=== PATIENT | male | born 1995 | race Hispanic/Latino ===

== ENCOUNTER 2023-08-18 19:35 | Inpatient (IN) | payer MEDICAID, SELFPAY ==
[2023-08-18 21:41] LABS: Absolute Basophils 0.1 K/uL (0-0.5); Absolute Eosinophils 0.2 K/uL (0-0.5); Absolute Lymphocytes (CBC) 1.3 K/uL (0.7-4.9); Absolute Monocytes 0.5 K/uL (0.1-1.3); Absolute Neutrophil 4.7 K/uL (1.8-8.0); Basophils % 0.8 % (0-1.3); Eosinophils % 3.5 % (0-4.4); Hematocrit 24.6 % (39.6-49.0); Hemoglobin 8.7 g/dL (13.6-17.9); Lymphocytes % 19.2 % (15.3-44.8); MCH 29.5 pg (27.0-35.0); MCHC 35.2 g/dL (32.0-36.0); MCV 83.6 fL (80-100); MPV 9.6 fL (7.6-11.3); Monocytes % 7.6 % (3.3-12.3); Neutrophils % 68.9 % (41.7-73.7); Nucleated Red Blood Cells % 0.1 % (0-0); Platelets 137 thou/uL (152-406); RBC Red Blood Cell Count 2.94 M/uL (4.33-5.43); Red Cell Distribution Width 12.9 % (12.1-15.2)
--- NOTE | 2023-08-18 22:06 | RAD REPORT ---
EXAM DESCRIPTION: Shira Single View08/18/2023 8:46 pm CLINICAL HISTORY: Chest pain COMPARISON: none FINDINGS: Lungs appear clear of acute infiltrate. Cardiac silhouette moderately enlarged IMPRESSION: Cardiac silhouette moderately enlarged which may represent cardiomegaly or pericardial e ffusion
[2023-08-18 22:19] LABS: Albumin/Globulin Ratio 0.8 (1.1-1.8); Anion Gap 16.8 mEq/L (5.0-15.0); Bilirubin Total 0.5 mg/dL (0.2-1.0); Globulin 3.9 g/dL (2.3-3.5); Magnesium 2.8 mg/dL (1.6-2.4); Potassium 2.8 mEq/L (3.5-5.1); Protein, Total 6.9 g/dL (6.4-8.2)
[2023-08-18 22:24] LABS: Troponin High Sensitivity 191.9 pg/mL (<58.9)
[2023-08-18] MEDS ORDERED: ONDANSETRON 4 MG/2 ML VIAL IV PRN (23:11)
--- NOTE | 2023-08-18 23:11 | P.HP ---
Certification for Inpatient Patient admitted to: Inpatient With expected LOS: >2 Midnights Practitioner: I am a practitioner with admitting privileges, knowledge of patient current condition, hospital course, and medical plan of care. Services: Services provided to patient in accordance with Admission requirements found in Title 42 Section 412.3 of the Code of Federal Regulations Patient History Date of Service: 08/19/23 Reason for admission: Renal failure, hypocalcemia, metabolic acidemia History of Present Illness: 28-year-old male patient was medical history significant for high blood pressure related issue was evaluated for episode of lethargy weakness and found to have significant lab abnormality. He was found to have elevated creatinine of 12, potassium of 2.9, bicarb of 17, calcium of 5.9 and significant elevation of BUN. Overall he was deemed to have renal failure and was admitted for inpatient care. He had reported episode of lethargy, weakness, poor appetite. He denied overt episode of diarrhea. Initial his initial lab in the at patient setting was similar to labs done in the emergency room. He was asked to be evaluated by nephrology for management recommendation. Renal ultrasound done while admitted showed increased echogenicity of both kidneys with poor corticomedullary differentiation depicting chronic medical renal disease. Allergies No Known Allergies Allergy (Unverified 08/19/23 00:48) Review of Systems General: Weakness, Malaise Eyes: Unremarkable ENT: Unremarkable Respiratory: Unremarkable Cardiovascular: Unremarkable Gastrointestinal: As per HPI Genitourinary: Unremarkable Musculoskeletal: Unremarkable Integumentary: Unremarkable Neurological: Unremarkable Lymphatics: Unremarkable Physical Examination - Physical Exam General: Alert, Oriented x3 HEENT: Atraumatic Neck: Supple Respiratory: Normal air movement Cardiovascular: Regular rate/rhythm, Normal S1 S2 Gastrointestinal: Soft and benign Musculoskeletal: No swelling Neurological: Normal speech, Normal strength at 5/5 x4 extr - Studies Laboratory Data (last 24 hrs) 08/18/23 08/18/23 21:17 21:17 WBC 6.80 Hgb 8.7 L Hct 24.6 L Plt Count 137 L Sodium 124 L Potassium 2.8 L BUN 90 H Creatinine 11.70 H Glucose 125 H Magnesium 2.8 H Total Bilirubin 0.5 AST 10 L ALT 15 L Alkaline Phosphatase 123 H Assessment and Plan - Plan Renal failure: Present kidney function abnormality is deemed secondary to hypertensive nephrosclerosis however the other possibilities. Significant uremia noted. Hypocalcemia, metabolic acidemia, hyponatremia and hypokalemia all deemed secondary to renal failure related issue. We will follow recommendation by nephrology for management of kidney function issues. Nephrology consultation has been placed for care plan. Hypocalcemia: Low calcium noted at 5.9. This is deemed secondary to poor calcium hemostasis from clinically stress kidney. Calcitriol and calcium carbonate started for management Nephrology consultation placed Metabolic acidemia: Bicarb is low at 17. This is presumed secondary to poor bicarb generation from chronically stressed kidney. Will supplement with sodium bicarbonate and have nephrology manage appropriately. Hypertension: We will monitor vital signs per unit protocol and continue outpatient antihypertensive medications. Anemia: Low hemoglobin is 9.0. Management recommendation as per bacon skin lifter. Iron studies obtained. Prophylaxis: Heparin for DVT prophylaxis CODE STATUS: Full code Disposition: We will treat his renal failure related issue and he will be evaluated for possible outpatient dialysis placement. - Advance Directives Does patient have a Living Will: No Does patient have a Durable POA for Healthcare: No
--- NOTE | 2023-08-18 23:13 | ER ---
Nurse's Notes [facility] Name: Ranjit Wooten Age: 28 yrs Sex: Male : 1995 Arrival Date: 08/18/2023 Time: 19:35 Bed 19 Private MD: Diagnosis: Acute kidney failure, unspecified Presentation: 08/17 19:52 Chief complaint: Patient states: Pt c/o dizziness, high blood pressure, difficulty tl4 concentrating, nausea and vomiting x 2-3 weeks. Pt was evaluated at a clinic. Lab results are abnormal. Pt started on HTN meds. Coronavirus screen: At this time, the client does not indicate any symptoms associated with coronavirus-19. Ebola Screen: No symptoms or risks identified at this time. Initial Sepsis Screen: Does the patient meet any 2 criteria? No. Patient's initial sepsis screen is negative. Does the patient have a suspected source of infection? No. Patient's initial sepsis screen is negative. Risk Assessment: Do you want to hurt yourself or someone else? Patient reports no desire to harm self or others. Onset of symptoms was July 29, 2023. 19:52 Method Of Arrival: Ambulatory tl4 19:52 Acuity: ESCOBAR 3 tl4 Triage Assessment: 19:57 General: Appears in no apparent distress. Behavior is calm, cooperative. Pain: Denies tl4 pain. EENT: No deficits noted. No signs and/or symptoms were reported regarding the EENT system. Neuro: No deficits noted. Cardiovascular: No deficits noted. Respiratory: No deficits noted. GI: Reports nausea, vomiting. : No deficits noted. No signs and/or symptoms were reported regarding the genitourinary system. Derm: No deficits noted. No signs and/or symptoms reported regarding the dermatologic system. Musculoskeletal: No deficits noted. No signs and/or symptoms reported regarding the musculoskeletal system. Historical: - Allergies: 19:58 No Known Allergies; tl4 - Home Meds: 19:58 lisinopril 20 mg Oral tablet 1 tabs daily [Active]; tl4 - PMHx: 19:58 Hypertensive disorder; tl4 - PSHx: 19:58 None; tl4 - Immunization history:: Adult Immunizations unknown. - Social history:: Smoking status: Patient reports the use of cigarette tobacco products, smokes one-half pack cigarettes per day. Screenin:59 [facility] ED Fall Risk Assessment (Adult) History of falling in the last 3 months, jw7 including since admission No falls in past 3 months (0 pts) Confusion or Disorientation No (0 pts) Intoxicated or Sedated No (0 pts) Impaired Gait No (0 pts) Mobility Assist Device Used No (0 pt) Altered Elimination No (0 pt) Score/Fall Risk Level 0 - 2 = Low Risk Oriented to surroundings, Maintained a safe environment, Educated pt \T\ family on fall prevention, incl call for assistance when getting out of bed. Abuse screen: Denies threats or abuse. Denies injuries from another. Nutritional screening: No deficits noted. Tuberculosis screening: No symptoms or risk factors identified. Assessment: 21:00 General: Appears in no apparent distress. comfortable, Behavior is calm, cooperative. jw7 Pain: Denies pain. Neuro: Ryan Agitation-Sedation Scale (RASS): 0 - Alert and Calm Level of Consciousness is awake, alert, obeys commands, Oriented to person, place, time, situation. Cardiovascular: Heart tones S1 S2 present Capillary refill < 3 seconds Clubbing of nail beds is absent JVD is absent Patient's skin is warm and dry. Respiratory: Airway is patent Trachea midline Respiratory effort is even, unlabored, Respiratory pattern is regular, symmetrical, Breath sounds are clear bilaterally. GI: Abdomen is flat, non-distended, Bowel sounds present X 4 quads. Abd is soft and non tender X 4 quads. : No deficits noted. No signs and/or symptoms were reported regarding the genitourinary system. EENT: No deficits noted. No signs and/or symptoms were reported regarding the EENT system. Derm: Skin is intact, is healthy with good turgor, Skin is dry, Skin is normal, Skin temperature is warm. Musculoskeletal: Circulation, motion, and sensation intact. Range of motion: intact in all extremities. 22:00 Reassessment: Patient appears in no apparent distress at this time. No changes from jw7 previously documented assessment. Patient and/or family updated on plan of care and expected duration. Pain level reassessed. Patient is alert, oriented x 3, equal unlabored respirations, skin warm/dry/pink. 23:00 Reassessment: Patient appears in no apparent distress at this time. No changes from jw7 previously documented assessment. Patient and/or family updated on plan of care and expected duration. Pain level reassessed. Patient is alert, oriented x 3, equal unlabored respirations, skin warm/dry/pink. 08/18 00:08 Reassessment: Patient appears in no apparent distress at this time. No changes from jw7 previously documented assessment. Patient and/or family updated on plan of care and expected duration. Pain level reassessed. Patient is alert, oriented x 3, equal unlabored respirations, skin warm/dry/pink. 01:00 Reassessment: Patient appears in no apparent distress at this time. Patient and/or pf1 family updated on plan of care and expected duration. Pain level reassessed. Patient is alert, oriented x 3, equal unlabored respirations, skin warm/dry/pink. Patient states feeling better. Patient states symptoms have improved. 02:00 Reassessment: Patient appears in no apparent distress at this time. Patient and/or pf1 family updated on plan of care and expected duration. Pain level reassessed. Patient is alert, oriented x 3, equal unlabored respirations, skin warm/dry/pink. Patient states feeling better. Patient states symptoms have improved. 17:18 General: Tried to call report on patient and was informed that there is already a [facility] patient in [facility].. 17:18 General: Tried to call report on patient and was told room 405 (the assigned room) [facility] already has a patient in it. Called wash house worker and was told she will find a different room and let me know. . 17:37 General: Called to give report to RAY Ellis. She is with another patient at this [facility] time and will call me back. . Vital Signs: 08/17 19:52 BP 188 / 96; Pulse 75; Resp 18; Temp 98.7(O); Pulse Ox 100% on R/A; Weight 82.55 kg; tl4 Pain 0/10; 21:00 BP 178 / 103; Pulse 63; Resp 18 S; Pulse Ox 100% on R/A; jw7 22:00 BP 162 / 101; Pulse 63; Resp 19 S; Pulse Ox 100% on R/A; jw7 23:00 BP 175 / 106; Pulse 58; Resp 18 S; Pulse Ox 100% on R/A; jw7 08/18 00:00 BP 151 / 119; Pulse 63; Resp 15 S; Pulse Ox 100% on R/A; jw7 01:00 BP 165 / 97; Pulse 65; Resp 16; Temp 98.1; Pulse Ox 100% on R/A; Pain 0/10; pf1 02:00 BP 166 / 93; Pulse 71; Resp 18; Temp 98; Pulse Ox 100% on R/A; Pain 0/10; pf1 08/17 19:52 Pain Scale: Adult tl4 01:00 Pain Scale: Adult pf1 02:00 Pain Scale: Adult pf1 ED Course: 08/17 19:40 Patient arrived in ED. ae5 19:55 [facility]ra Perez FNP-C [facility]. kb 19:55 Werner Spann MD is Attending Physician. kb 19:57 Triage completed. tl4 19:57 Arm band placed on left wrist. tl4 20:48 XRAY Chest (1 view) In Process Unspecified. EDMS 20:59 Patient has correct armband on for positive identification. Placed in gown. Bed in low jw7 position. Call light in reach. Side rails up X 1. 21:21 Initial lab(s) drawn, by me, sent to lab. EKG done, by ED staff, reviewed by Benson Mcclendon MD. Inserted saline lock: 22 gauge in right forearm, using aseptic technique. Blood collected. 22:26 Attending Physician role handed off by Werner Spann MD sp4 22:26 Benson Mcclendon MD is Attending Physician. sp4 23:11 Vinh Bush MD is Hospitalizing Provider. kb 08/18 02:52 Provided Education on: need for admit. pf1 02:52 No provider procedures requiring assistance completed. pf1 02:52 Patient admitted, IV remains in place. pf1 15:38 Joy Blount, RN is Primary Nurse. me1 Administered Medications: 00:04 Drug: hydrALAZINE IVP 10 mg IVP once Route: IVP; Site: right forearm; jw7 01:00 Follow up: Response: No adverse reaction; Blood pressure is lowered pf1 Medication: 02:52 VIS not applicable for this client. pf1 Outcome: 08/17 23:12 Decision to Hospitalize by Provider. kb 03 02:52 Admitted to ER Hold. Please see [facility] for further documentation. pf1 02:52 Condition: stable pf1 02:52 Instructed on the need for admit, Demonstrated understanding of instructions, 18:33 Patient left the ED. me1 Signatures: Dispatcher [employer] EDCiarra Lugo, KOKO HOUSE DIRECTOR-Karrie Morales, RN RN jw7 Alina Turcios RN RN pf1 Benson Mcclendon MD MD sp4 Joy Blount RN RN me1 Peter Rawls RN RN tl4 Ana Paula Irwin ae5 Corrections: (The following items were deleted from the chart) 08/17 19:59 19:52 BP 188 / 96; Pulse 75bpm; Resp 18bpm; Pulse Ox 100% RA; Temp 98.7F Oral; Pain tl4 0/10, Adult; tl4
--- NOTE | 2023-08-18 23:13 | EDPHYS ---
Physician Documentation [facility] Name: Ranjit Wooten Age: 28 yrs Sex: Male : 1995 Arrival Date: 08/18/2023 Time: 19:35 Bed 19 Private MD: ED Physician Benson Mcclendon HPI: 08/17 23:28 This 28 yrs old Male presents to ER via Ambulatory with complaints of Nausea, kb Blood Pressure Problem, Dizziness. 23:28 Patient is a 28-year-old male with hypertension that was diagnosed recently, started on kb lisinopril 4 days ago. Patient has had nausea and vomiting and high blood pressure for the last 2 to 3 weeks. Went to a clinic and often and had blood work done. Was called today and told that he needed to come to the ER immediately for abnormal labs. Patient reports he has been urinating within normal limits. Denies swelling. Denies chest pain, shortness of breath.. Historical: - Allergies: 19:58 No Known Allergies; tl4 - Home Meds: 19:58 lisinopril 20 mg Oral tablet 1 tabs daily [Active]; tl4 - PMHx: 19:58 Hypertensive disorder; tl4 - PSHx: 19:58 None; tl4 - Immunization history:: Adult Immunizations unknown. - Social history:: Smoking status: Patient reports the use of cigarette tobacco products, smokes one-half pack cigarettes per day. ROS: 23:27 Constitutional: As per HPI kb Exam: 23:27 Constitutional: This is a well developed, well nourished patient who is awake, alert, kb and in no acute distress. Head/Face: Normocephalic, atraumatic. ENT: Moist Mucous membranes Cardiovascular: Regular rate Respiratory: Respirations even and unlabored. No increased work of breathing. Talking in full sentences Abdomen/GI: Soft, non-tender. No distention Skin: Warm, dry with normal turgor. Normal color. MS/ Extremity: Pulses equal, no cyanosis. Neurovascular intact. Full, normal range of motion. Neuro: Awake and alert, GCS 15, oriented to person, place, time, and situation. Moves all extremities. Normal gait. Vital Signs: 19:52 BP 188 / 96; Pulse 75; Resp 18; Temp 98.7(O); Pulse Ox 100% on R/A; Weight 82.55 kg; tl4 Pain 0/10; 21:00 BP 178 / 103; Pulse 63; Resp 18 S; Pulse Ox 100% on R/A; jw7 22:00 BP 162 / 101; Pulse 63; Resp 19 S; Pulse Ox 100% on R/A; jw7 23:00 BP 175 / 106; Pulse 58; Resp 18 S; Pulse Ox 100% on R/A; jw7 08/18 00:00 BP 151 / 119; Pulse 63; Resp 15 S; Pulse Ox 100% on R/A; jw7 01:00 BP 165 / 97; Pulse 65; Resp 16; Temp 98.1; Pulse Ox 100% on R/A; Pain 0/10; pf1 02:00 BP 166 / 93; Pulse 71; Resp 18; Temp 98; Pulse Ox 100% on R/A; Pain 0/10; pf1 08/17 19:52 Pain Scale: Adult tl4 01:00 Pain Scale: Adult pf1 02:00 Pain Scale: Adult pf1 MDM: 08/17 19:55 Patient medically screened. kb 23:10 Data reviewed: vital signs, nurses notes. Consideration of Admission/Observation kb Patient was admitted/placed on observation. Escalation of care including admission/observation considered. Management of patient was discussed with the following: Hospitalist: Dr Bush accepts pt for admission. Historians other than the Patient: Parent: mother. Counseling: I had a detailed discussion with the patient and/or guardian regarding the historical points, exam findings, and any diagnostic results supporting the discharge/admit diagnosis, lab results, radiology results, the need for further work-up and treatment in the hospital. 08/17 19:59 Order name: CBC with Diff; Complete Time: 21:45 kb 08/17 19:59 Order name: Magnesium; Complete Time: 22:25 kb 08/17 19:59 Order name: NT PRO-BNP; Complete Time: 22:25 kb 08/17 19:59 Order name: Troponin HS; Complete Time: 22:25 kb 08/17 19:59 Order name: CMP; Complete Time: 22:25 kb 08/17 23:17 Order name: Creatine Phosphokinase; Complete Time: 00:42 EDMS 08/17 23:17 Order name: Basic Metabolic Panel EDMS 08/17 23:17 Order name: Basic Metabolic Panel EDMS 08/17 23:17 Order name: Basic Metabolic Panel EDMS 08/17 23:17 Order name: Basic Metabolic Panel EDMS 08/17 23:17 Order name: CBC with Automated Diff EDMS 08/17 23:17 Order name: CBC with Automated Diff EDMS 08/17 23:17 Order name: CBC with Automated Diff EDMS 08/17 23:17 Order name: CBC with Automated Diff EDMS 08/17 23:17 Order name: Phosphorus EDMS 08/17 23:17 Order name: Phosphorus EDMS 08/17 23:17 Order name: Phosphorus EDMS 08/17 23:17 Order name: Phosphorus EDMS 08/17 23:17 Order name: Troponin High Sensitivity EDMS 08/17 23:17 Order name: Troponin High Sensitivity EDMS 08/17 23:17 Order name: Troponin High Sensitivity EDMS 08/17 23:17 Order name: Troponin High Sensitivity EDMS 08/18 05:39 Order name: Transferrin Sat/Iron Binding EDMS 08/18 05:39 Order name: Ferritin EDMS 08/17 19:59 Order name: XRAY Chest (1 view); Complete Time: 22:12 kb 08/17 23:18 Order name: Renal Ultrasound-Complete EDMS 08/17 19:59 Order name: EKG; Complete Time: 20:00 kb 08/17 23:17 Order name: CONS Physician Consult EDMS 08/17 19:59 Order name: Cardiac monitoring; Complete Time: 21:22 kb 08/17 19:59 Order name: EKG - Nurse/Tech; Complete Time: 21:22 kb 08/17 19:59 Order name: IV Saline Lock; Complete Time: 21:22 kb 08/17 19:59 Order name: Labs collected and sent; Complete Time: 21:23 kb 08/17 19:59 Order name: O2 Per Protocol; Complete Time: 21:03 kb 08/17 19:59 Order name: O2 Sat Monitoring; Complete Time: 21:03 kb Administered Medications: 08/18 00:04 Drug: hydrALAZINE IVP 10 mg IVP once Route: IVP; Site: right forearm; jw7 01:00 Follow up: Response: No adverse reaction; Blood pressure is lowered pf1 Disposition: 00:44 Co-signature as Attending Physician, Benson Mcclendon MD I agree with the assessment sp4 and plan of care. I reviewed the patient's care provided by Advanced Practice Provider \T\ agree w/ the diagnosis \T\ care plan. I personally saw the pt \T\ performed a substantive portion of the visit, incldng all aspects of the (History/Exam/Medical Decision Making). Disposition Summary: 08/18/23 23:12 Hospitalization Ordered Notes: Hospitalization Status: Inpatient Admission kb Provider: Vinh Bush Condition: Stable kb Problem: new kb Symptoms: are unchanged kb Bed/Room Type: Standard kb Location: Telemetry/MedSurg (Inpatient)(08/19/23 15:16) eb Room Assignment: 421(08/19/23 17:33) kb3 Diagnosis - Acute kidney failure, unspecified kb Forms: - Medication Reconciliation Form kb - SBAR form kb - Leadership Thank You Letter kb Critical care time excluding procedures: 08/17 23:10 Critical care time: Bedside Care: 10 minutes, Consultation: 10 minutes, Family kb Intervention: 10 minutes. Total time: 30 minutes Signatures: Dispatcher [employer] EDCiarra Lugo, GRADING CLERK-C GRADING CLERK-Ckb Fallon Garcia, RN RN aa5 Paris Hernandes Vanessa RN RN vc1 Karrie Higgins, RN RN jw7 Theodora Weir, RN RN kb3 Benson Mcclendon MD MD sp4 Peter Rawls RN RN tl4 Alina Turcios RN pf1 Corrections: (The following items were deleted from the chart) 08/18 02:52 08/17 23:12 Telemetry/MedSurg (Inpatient) kb vc1 08/18 02:52 03 23:12 kb vc1 08/18 15:16 02:52 [facility] ER HOLD vc1 eb 15:16 02:52 ERHOLD- vc1 eb 16:09 15:16 407 eb aa5 17:33 16:09 405 aa5 kb3
[2023-08-18] MEDS: NA CHLORIDE 0.9% 1,000 ML IV SCH (23:45)
[2023-08-18] MEDS ORDERED: HYDRALAZINE HCL 20 MG/ML VIAL ONE (23:46)
[2023-08-19] MEDS: HEPARIN 5000 UNIT/ML 1 ML VIAL SQ SCH (01:00)
[2023-08-19 02:57] LABS: Absolute Eosinophils 0.3 K/uL (0-0.5); Absolute Lymphocytes (CBC) 1.3 K/uL (0.7-4.9); Absolute Monocytes 0.5 K/uL (0.1-1.3); Absolute Neutrophil 4.5 K/uL (1.8-8.0); Basophils % 0.8 % (0-1.3); Eosinophils % 4.2 % (0-4.4); Hematocrit 25.1 % (39.6-49.0); Hemoglobin 8.9 g/dL (13.6-17.9); Lymphocytes % 19.5 % (15.3-44.8); MCH 29.3 pg (27.0-35.0); MCHC 35.4 g/dL (32.0-36.0); MCV 82.8 fL (80-100); MPV 9.6 fL (7.6-11.3); Monocytes % 7.8 % (3.3-12.3); Neutrophils % 67.7 % (41.7-73.7); Platelets 141 thou/uL (152-406); RBC Red Blood Cell Count 3.03 M/uL (4.33-5.43); Red Cell Distribution Width 13.2 % (12.1-15.2)
[2023-08-19 02:58] LABS: Absolute Basophils 0.1 K/uL (0-0.5)
[2023-08-19 03:41] LABS: Anion Gap 18.7 mEq/L (5.0-15.0); Phosphorus 8.7 mg/dL (2.5-4.9); Potassium 2.7 mEq/L (3.5-5.1)
[2023-08-19] MEDS ORDERED: NA CHLORIDE 0.9% 1,000 ML ONE (04:56)
[2023-08-19] MEDS ORDERED: HEPARIN 5000 UNIT/ML 1 ML VIAL ONE (04:56)
[2023-08-19] MEDS: CALCIUM ACETATE 667 MG TAB PO SCH (08:00)
[2023-08-19] MEDS: INFLUENZA VACCINE (for 6+ mo) 0.5 ML DOSE IMVAC ONE (08:00)
[2023-08-19] MEDS: CALCITROL 0.25 MCG CAP PO SCH (08:39)
[2023-08-19] MEDS: CALCIUM CARBONATE 500 MG TAB PO SCH (08:39)
--- NOTE | 2023-08-19 10:36 | P.PN ---
Subjective Date of Service: 08/19/23 Chief Complaint: Renal failure, hypocalcemia, metabolic acidemia Italian-speaking male, reports nausea vomiting generalized weakness, over the last week, family at bedside - Physical Exam General: Alert, Oriented x3 HEENT: Atraumatic Neck: Supple Respiratory: Normal air movement Cardiovascular: Regular rate/rhythm, Normal S1 S2 Gastrointestinal: Soft and benign Musculoskeletal: No swelling Neurological: Normal speech, Normal strength at 5/5 x4 extr <Alice Salcido - Last Filed: 08/19/23 18:33> Date of Service: 08/19/23 <Hamilton Zarcol - Last Filed: 08/20/23 17:16> Review of Systems Per HPI <Alice Salcido - Last Filed: 08/19/23 18:33> Physical Examination - Vital Signs Temperature: 97.9 F Blood Pressure: 141/80 Pulse: 71 Respirations: 17 Pulse Ox (%): 100 - Studies Laboratory Data (last 24 hrs) 08/18/23 08/18/23 21:17 21:17 WBC 6.80 Hgb 8.7 L Hct 24.6 L Plt Count 137 L Sodium 124 L Potassium 2.8 L BUN 90 H Creatinine 11.70 H Glucose 125 H Magnesium 2.8 H Total Bilirubin 0.5 AST 10 L ALT 15 L Alkaline Phosphatase 123 H <Alice Salcido - Last Filed: 08/19/23 18:33> Assessment And Plan - Plan Assessment and Plan - Plan Renal failure: Acute Uremia acute Present kidney function abnormality is deemed secondary to hypertensive nephrosclerosis however the other possibilities. Significant uremia noted. Hypocalcemia, metabolic acidemia, hyponatremia and hypokalemia all deemed secondary to renal failure related issue. We will follow recommendation by nephrology for management of kidney function issues. Nephrology consultation has been placed for care plan. Hypocalcemia: Low calcium noted at 5.9. This is deemed secondary to poor calcium hemostasis from clinically stress kidney. Calcitriol and calcium carbonate started for management Nephrology consultation placed Hypokalemia Replace as needed Metabolic acidemia: Bicarb is low at 17. This is presumed secondary to poor bicarb generation from chronically stressed kidney. Will supplement with sodium bicarbonate and have nephrology manage appropriately. Hypertension: We will monitor vital signs per unit protocol and continue outpatient antihypertensive medications. Anemia: Low hemoglobin is 9.0. Management recommendation as per record retrieval specialist. Iron studies obtained. Prophylaxis: Heparin for DVT prophylaxis CODE STATUS: Full code Disposition: We will treat his renal failure related issue and he will be evaluated for possible outpatient dialysis placement. Discharge Plan: Home - Code Status/Comfort Care Code Status: Full Code Critical Care: No Time Spent Managing PTS Care (In Minutes): 35 <Alice Salcido - Last Filed: 08/19/23 18:33> Date of Service: 08/19/23 Patient seen and examined. Patient presents for renal failure. Patient Italian-speaking only. His mother at bedside and she is Italian-speaking only as well. Patient has had kidney issues so we will go ahead and get nephrology consultation and try to get records. Patient will need renal biopsy. This will be done in the morning. Continue with aggressive workup at this time. <Hamilton Zarco - Last Filed: 08/20/23 17:16>
--- NOTE | 2023-08-19 14:13 | EKG ---
Test Date: 2023-08-18 Test Time: 21:17:52 Bone Puller: DAVID MEASUREMENT RESULTS: Intervals: Rate: 64 NV: 164 QRSD: 110 QT: 466 QTc: 480 [place]: P: 60 NV: 164 QRS: 64 T: -72 INTERPRETIVE STATEMENTS: Normal sinus rhythm Voltage criteria for left ventricular hypertrophy ST & T wave abnormality, consider inferolateral ischemia Prolonged QT Abnormal ECG No previous ECG available for comparison Electronically Signed On 08-19-23 14:12:38 [employer]ONEWORKING BELT SANDER by Christofer Perez
[2023-08-19] MEDS: EPOETIN ALFA-EPBX 4,000 UNIT/ML VIAL SQ SCH (15:00)
[2023-08-19] MEDS: POTASSIUM CL SA 10 MEQ TAB PO ONE (15:13)
[2023-08-19] MEDS ORDERED: POTASSIUM CL SA 10 MEQ TAB PO ONE (16:05)
--- NOTE | 2023-08-19 19:00 | CON ---
Date of Consultation: 08/19/2023 Reason For Consultation: Elevated BUN and creatinine, hypokalemia, electrolyte imbalance. History Of Present Illness: This is a pleasant 28-year-old gentleman without any significant past me dical history. According to the patient, he started having fatigue, nausea without any vomiting. Fo r that reason, he reported to his primary care. Primary workup with primary care show elevation in B UN and creatinine. For that reason, the patient was sent to the ER. Upon arrival to the ER, the pat iecherry was found to have acidosis, hypocalcemia with creatinine 12. The patient denied any tremor. Th e patient denied taking any nonsteroidal. Denied taking any medication. No rashes. Past Medical History: Negative. Allergies: NO KNOWN DRUGS ALLERGY. Home Medications: Negative. Past Surgical History: Negative. Family History: Positive for diabetes and hypertension. Review of Systems: Head and Neck: No red eye. No ear pain. GI: Has nausea. No vomiting. : No polyuria. No dysuria. No hematuria. ORCHID HAND: Not applicable. Respiratory: No shortness of breath. Cardiovascular: No chest pain. Endocrine: No polydipsia. Skin: No rash. Neuro: Generalized weakness. Musculoskeletal: Generalized fatigue. Physical Examination: Vital Signs: When I saw the patient, blood pressure 141/80, pulse of 71, afebrile. Chest: Clear to auscultation. Heart: S1, S2 regular. Abdomen: Soft, nontender. Extremities: No edema. Neurologic: Alert. No focality. Laboratory Data: WBC 6.6, hemoglobin 8.9. Sodium 128, potassium 2.7, bicarb 17, BUN 93, creatinine 12, GFR of 5, calcium 5.9, phosphorous 8.7. Iron saturation 30. CK 436. Urinalysis not done. Assessment And Plan: 1.Acute kidney injury, unknown etiology, advanced, nonoliguric, no hyperkalemia, mild acidosis. No uremic symptoms. I had long discussion with the family that our differential possible secondary to p rerenal, secondary to poor intake, but with the presence of severe hypocalcemia and acidosis, mostly this has some chronic component. I had discussion with the patient that we are going to need full wo rkup including kidney biopsy. The patient on agreement. We will proceed with kidney biopsy and also I had discussion that if kidney number did not improve, the patient will need to initiate renal repl acement therapy. The patient and family on agreement. We will follow up. I am going to start the p atient on IV hydration and we will follow up the patient. We will send for full workup and we will f ollow up the renal ultrasound. 2.High anion gap metabolic acidosis secondary to renal failure. I will start the patient on oral bi carb. 3.Hypokalemia. We will supplement cautiously given the acute kidney injury. 4.Hyponatremia secondary to renal failure and depletion. We will start IV hydration. 5.Hypocalcemia, possible secondary to secondary hyperparathyroidism in the presence of renal failure . We will send for PTH and vitamin D. 6.Anemia with the presence of acute kidney injury, possible secondary to chronic kidney disease. To rule out light chain disease, we will send. Thank you, Dr. Zarco, for allowing us to participate in the care of your patient. PIETER/DIVYA Voice ID: [id number] Report ID: [id number]
--- NOTE | 2023-08-19 19:27 | RAD REPORT ---
EXAM DESCRIPTION: US - Renal Ultrasound-Complete - 08/19/2023 4:36 am CLINICAL HISTORY: The patient is 28 years old and is Male; pt with renal failure TECHNIQUE: Real-time limited ultrasound of the retroperitoneum with image documentation. COMPARISON: No relevant prior studies available. FINDINGS: RIGHT KIDNEY: The right kidney demonstrates poor corticomedullary differentiation. The r ight kidney is increased in echogenicity. There is no hydronephrosis. A small right renal cyst is pre sent. No stones. LEFT KIDNEY: The left kidney demonstrates poor cortical medullary differentiation. The left kidne y is increased in echogenicity. There is no hydronephrosis. No stones. BLADDER: The bladder is well distended. IMPRESSION: Poor cortical medullary differentiation of both kidneys with increased echogenicity whic h can be seen with renal disease. Electronically signed by: Wendy Church MD 08/19/2023 12:08 AM ACTIVITIES ATTENDANT Due to temporary technical issues with the PACS/Fluency reporting system, reports are being signed by the in house radiologists without review as a courtesy to insure prompt reporting. The interpreting radiologist is fully responsible for the content of the report.
[2023-08-19 19:33] LABS: PT Prothrombin Time 11.8 SECONDS (9.5-12.5); PTT, Activated Partial Thromb 41.8 SECONDS (24.3-36.9); Protime INR 1.07
[2023-08-20 04:46] LABS: Absolute Eosinophils 0.2 K/uL (0-0.5); Absolute Monocytes 0.4 K/uL (0.1-1.3); Absolute Neutrophil 3.9 K/uL (1.8-8.0); Basophils % 0.8 % (0-1.3); Eosinophils % 2.9 % (0-4.4); Hemoglobin 8.7 g/dL (13.6-17.9); Lymphocytes % 17.9 % (15.3-44.8); MCH 29.3 pg (27.0-35.0); MCHC 34.9 g/dL (32.0-36.0); MPV 9.8 fL (7.6-11.3); Monocytes % 6.9 % (3.3-12.3); Neutrophils % 71.5 % (41.7-73.7); Percent Reticulocyte Count 1.56 % (0.4-2.05); Platelets 137 thou/uL (152-406); RBC Red Blood Cell Count 2.97 M/uL (4.33-5.43); Red Cell Distribution Width 12.8 % (12.1-15.2)
[2023-08-20 05:30] LABS: Albumin 2.9 g/dL (3.4-5.0); Anion Gap 16.4 mEq/L (5.0-15.0); Phosphorus 8.4 mg/dL (2.5-4.9); Potassium 3.4 mEq/L (3.5-5.1); Thyroid Stimulating Hormone 2.84 uIU/mL (0.358-3.740); Uric Acid 12.3 mg/dL (3.5-7.2)
[2023-08-20 07:50] LABS: Rheumatoid Factor NEG (NEG)
--- NOTE | 2023-08-20 08:53 | P.PN ---
Subjective Date of Service: 08/20/23 Chief Complaint: Renal failure, hypocalcemia, metabolic acidemia Greek-speaking male, reports nausea vomiting generalized weakness, over the last week, family at bedside - Physical Exam General: Alert, Oriented x3 HEENT: Atraumatic Neck: Supple Respiratory: Normal air movement Cardiovascular: Regular rate/rhythm, Normal S1 S2 Gastrointestinal: Soft and benign Musculoskeletal: No swelling Neurological: Normal speech, Normal strength at 5/5 x4 extr <Alice Salcido - Last Filed: 08/20/23 08:49> Date of Service: 08/20/23 <Hamilton Zarco - Last Filed: 08/20/23 17:18> Review of Systems Per HPI <Alice Salcido - Last Filed: 08/20/23 08:49> Physical Examination - Vital Signs Temperature: 97.2 F Blood Pressure: 163/80 Pulse: 91 Respirations: 16 Pulse Ox (%): 100 <Alice Salcido - Last Filed: 08/20/23 08:49> Assessment And Plan - Plan Assessment and Plan - Plan Renal failure: Acute Uremia acute Present kidney function abnormality is deemed secondary to hypertensive nephrosclerosis however the other possibilities. Significant uremia noted. Hypocalcemia, metabolic acidemia, hyponatremia and hypokalemia all deemed secondary to renal failure related issue. We will follow recommendation by nephrology for management of kidney function issues. Nephrology consultation has been placed for care plan. Renal ultrasound IMPRESSION: Poor cortical medullary differentiation of both kidneys with increased echogenicity which can be seen with renal disease. Elevated troponin from acute renal failure Troponin 202 Hypocalcemia: Low calcium noted at 5.9. This is deemed secondary to poor calcium hemostasis from clinically stress kidney. Calcitriol and calcium carbonate started for management Nephrology consultation placed Hypokalemia Replace as needed Metabolic acidemia: Bicarb is low at 17. This is presumed secondary to poor bicarb generation from chronically stressed kidney. Will supplement with sodium bicarbonate and have nephrology manage appropriately. Hypertension: We will monitor vital signs per unit protocol and continue outpatient antihypertensive medications. Anemia: Low hemoglobin is 9.0. Management recommendation as per sales and operations trainee. Iron studies obtained. Prophylaxis: Heparin for DVT prophylaxis CODE STATUS: Full code Disposition: We will treat his renal failure related issue and he will be evaluated for possible outpatient dialysis placement. Discharge Plan: Home - Code Status/Comfort Care Code Status: Full Code Time Spent Managing PTS Care (In Minutes): 35 <Alice Salcido - Last Filed: 08/20/23 08:49> Date of Service: 08/20/23 Patient seen and examined. Patient had a renal biopsy performed. Waiting for pathology results. Labs are pending. Appreciate nephrology input in patient's care. Electrolytes are stable so no emergent need for dialysis as is patient's volume status. <Hamilton Zarco - Last Filed: 08/20/23 17:18>
[2023-08-20] MEDS: MIDAZOLAM HCL 2 MG/2 ML INJ ONE (09:30)
[2023-08-20] MEDS: FLUMAZENIL 0.1 MG/ML (5 mL VIAL) IV ONE (09:30)
[2023-08-20] MEDS: NALOXONE HCL 2 MG/2 ML VIAL ONE (09:31)
[2023-08-20] MEDS: FENTANYL CITR 100 MCG/2 ML ONE (09:31)
--- NOTE | 2023-08-20 10:57 | RAD REPORT ---
EXAM DESCRIPTION: CT - Renal Biopsy CT - 08/20/2023 10:46 am CLINICAL HISTORY: YVROSE Flank pain COMPARISON: No comparisons FINDINGS: Preoperative diagnosis: Acute kidney injury Post operative diagnosis: Same Conscious Sedation: 45 minutes of IV conscious sedation was utilized. IV midazolam and fentanyl was a dministered.. Patient was continuously monitored by nursing staff. Contrast used: NONE Estimated blood loss: less than 5 mL Specimens: 3 x 18 gauge core specimens The patient was placed prone on the table and the left posterior back area was prepped and draped in the usual sterile fashion. 1% lidocaine was infiltrated into the subcutaneous tissues for local anest hesia. Under computed tomographic guidance, a 17 gauge introducer was advanced into the left kidney i nferiorly. Subsequently, a 18 gauge, 15 cm long, 20 mm throw core biopsy gun was advanced into the ki dney and 3 cores were obtained. Postprocedure imaging demonstrated no complications. Samples were given to pathology for analysis. Th e patient tolerated the procedure without immediate complication and transferred to the recovery room in stable condition. IMPRESSION: Technically successful CT-guided left renal nonfocal biopsy. 45 minutes of IV conscious sedation was utilized. All CT scans are performed using dose optimization technique as appropriate and may include automated exposure control or mA/KV adjustment according to patient size.
[2023-08-20] MEDS: POTASSIUM CL SA 10 MEQ TAB PO ONE (11:30)
[2023-08-20] MEDS: DIPHENHYDRAMINE 25 MG TAB/CAP PO PRN (11:30)
--- NOTE | 2023-08-20 14:24 | P.PN ---
Subjective Date of Service: 08/20/23 Chief Complaint: Renal failure, hypocalcemia, metabolic acidemia Subjective: No new changes Physical Examination - Vital Signs Temperature: 97.2 F Blood Pressure: 163/80 Pulse: 91 Respirations: 16 Pulse Ox (%): 100 - Physical Exam General: Other (appears as his stated age) HEENT: Atraumatic, Normocephalic Neck: Supple Respiratory: Other (symmetric chest expansion) Cardiovascular: No rubs, No murmurs Gastrointestinal: Soft and benign, No guarding Musculoskeletal: No clubbing Integumentary: No warmth Neurological: Normal speech, Normal tone Lymphatics: No axilla or inguinal lymphadenopathy Urinary: Other (no bladder distention) External genitalia: Deferred Rectal: Deferred Assessment And Plan - Plan 1. YVROSE on CKD vs ESRD. S/p kidney biopsy today, f/u result. Renal diet. 2. AGMA. PO bicarb. 3. Hypokalemia. KCl repletion prn. 4. Hyponatremia secondary to renal failure. Avoid hypotonic IV fluid. 5. Hypocalcemia. Ca IV repletion today. 6. Anemia. Tsat adequate. Retacrit SQ dose on 08/20. 7. Secondary hyperPTH. Cont calcitriol. F/u 25OHD.
[2023-08-20] MEDS: carvediloL 6.25 MG TAB PO SCH (14:49)
[2023-08-20] MEDS: AMLODIPINE 5 MG TAB PO SCH (14:49)
[2023-08-20 15:55] LABS: Blood Gas Oxyhemoglobin 94.3 % (94-97); Blood Gas THB 14.1 g/dl (12-18)
[2023-08-20] MEDS: ACETAMINOPHEN 325 MG TABLET PO PRN (20:39)
[2023-08-21 02:54] LABS: UR PROTEIN 220.6 mg/dL (<11.9); Urine Protein/Creatinine Ratio 4.09 ratio (<0.15)
[2023-08-21 02:58] LABS: Specific Gravity 1.008 (1.005-1.030); Urine Bacteria None Seen /HPF (<20); Urine Bilirubin NEGATIVE (Negative); Urine Blood 3+ (Negative); Urine Clarity Clear (Clear); Urine Color Colorless (Yellow); Urine Glucose NEGATIVE (Negative); Urine Protein 2+ (Negative); Urine RBC 21-50 /HPF (None Seen); Urine Urobilinogen Normal (Normal); Urine Yeast (Budding) Trace /HPF (None Seen)
[2023-08-21 04:04] LABS: Absolute Basophils 0.1 K/uL (0-0.5); Absolute Eosinophils 0.2 K/uL (0-0.5); Absolute Lymphocytes (CBC) 0.9 K/uL (0.7-4.9); Absolute Monocytes 0.4 K/uL (0.1-1.3); Basophils % 0.9 % (0-1.3); Eosinophils % 3.2 % (0-4.4); Hematocrit 26.3 % (39.6-49.0); Hemoglobin 9.1 g/dL (13.6-17.9); MCH 29.6 pg (27.0-35.0); MCHC 34.6 g/dL (32.0-36.0); MCV 85.5 fL (80-100); Monocytes % 4.7 % (3.3-12.3); Neutrophils % 79.2 % (41.7-73.7); Platelets 157 thou/uL (152-406); RBC Red Blood Cell Count 3.07 M/uL (4.33-5.43)
[2023-08-21 04:32] LABS: Anion Gap 14.2 mEq/L (5.0-15.0); Phosphorus 8.2 mg/dL (2.5-4.9); Potassium 4.2 mEq/L (3.5-5.1)
--- NOTE | 2023-08-21 07:09 | P.PN ---
Subjective Date of Service: 08/22/23 Chief Complaint: Renal failure, hypocalcemia, metabolic acidemia Italian-speaking male, reports nausea vomiting generalized weakness, over the last week, family at bedside Pending renal biopsy, - Physical Exam General: Alert, Oriented x3 HEENT: Atraumatic Neck: Supple Respiratory: Normal air movement Cardiovascular: Regular rate/rhythm, Normal S1 S2 Gastrointestinal: Soft and benign Musculoskeletal: No swelling Neurological: Normal speech, Normal strength at 5/5 x4 extr Review of Systems Per HPI Physical Examination - Vital Signs Temperature: 97.4 F Blood Pressure: 148/75 Pulse: 60 Respirations: 15 Pulse Ox (%): 99 Assessment And Plan - Plan Assessment and Plan - Plan Renal failure: Acute Uremia acute Present kidney function abnormality is deemed secondary to hypertensive nephrosclerosis however the other possibilities. Significant uremia noted. Hypocalcemia, metabolic acidemia, hyponatremia and hypokalemia all deemed secondary to renal failure related issue. We will follow recommendation by nephrology for management of kidney function issues. Nephrology consultation has been placed for care plan. Renal ultrasound IMPRESSION: Poor cortical medullary differentiation of both kidneys with increased echogenicity which can be seen with renal disease. Pending renal biopsy BUN 103 Creatinine 119 Elevated troponin from acute renal failure Troponin 202 Hypocalcemia: Low calcium noted at 5.9. This is deemed secondary to poor calcium hemostasis from clinically stress kidney. Calcitriol and calcium carbonate started for management Nephrology consultation placed Hypokalemia Replace as needed Metabolic acidemia: Bicarb is low at 17. This is presumed secondary to poor bicarb generation from chronically stressed kidney. Will supplement with sodium bicarbonate and have nephrology manage appropriately. Hypertension: We will monitor vital signs per unit protocol and continue outpatient antihypertensive medications. Anemia: Low hemoglobin is 9.0. Management recommendation as per news production supervisor. Iron studies obtained. Prophylaxis: Heparin for DVT prophylaxis CODE STATUS: Full code Disposition: We will treat his renal failure related issue and he will be evaluated for possible outpatient dialysis placement. Discharge Plan: Home - Code Status/Comfort Care Code Status: Full Code Critical Care: No Time Spent Managing PTS Care (In Minutes): 35
[2023-08-21] MEDS: EPOETIN ALFA-EPBX 10,000 UNIT/ML VIAL SQ ONE (09:02)
[2023-08-21] MEDS: SODIUM BICARB 325 MG TAB PO SCH (09:02)
[2023-08-21] MEDS: CALCIUM GLUCONATE 1 GM IVPB 1 GM/50 ML BAG IV ONE ×2 (10:36→10:40)
--- NOTE | 2023-08-22 01:12 | PN ---
Date of Progress Note: 08/21/2023 Chief Complaint: Renal failure, hypocalcemia, metabolic acidosis. The patient denies chest pain, pa lpitation. Physical Examination: Lungs: Diminutive breath sound at bases. Heart: S1, S2. Abdomen: Soft. Extremities: Minimal edema. Impression And Plan: 1.Acute on chronic kidney injury versus end-stage renal disease, status post kidney biopsy yesterday . Results are pending. Continue renal diet. 2.Anion gap metabolic acidosis on p.o. bicarbonate. 3.Hypokalemia. Potassium repletion as needed. 4. secondary to renal failure. Avoid hypotonic IV fluids. 5.Hypocalcemia, status post IV calcium, pending workup for hypocalcemia. 6.Anemia. Status post PHUONG, . 7.Secondary hyperparathyroidism. Continue calcitriol. ARVIN/DIVYA Voice ID: [id number] Report ID: [id number]
[2023-08-22 04:22] LABS: Albumin 2.9 g/dL (3.4-5.0); Anion Gap 13.8 mEq/L (5.0-15.0); Phosphorus 6.3 mg/dL (2.5-4.9); Potassium 3.8 mEq/L (3.5-5.1)
[2023-08-22] MEDS: POTASSIUM 25 MEQ EFFERV TAB PO ONE (05:42)
--- NOTE | 2023-08-22 23:07 | PN ---
Date of Progress Note: 08/22/2023 Chief Complaint: Renal failure, hypocalcemia, metabolic acidosis. The patient denies complaints. D enies PND, orthopnea. Physical Examination: Lungs: Clear to auscultation bilaterally. Heart: S1, S2. Abdomen: Soft. Extremities: Slight edema. Impression And Plan: 1.Acute on chronic kidney injury versus end-stage renal disease, status post kidney biopsy on Wednesday . Results are pending. Continue to evaluate renal function. BUN is slightly improving, although e patient may need hemodialysis to be started and electrolytes are same with potassium loss repleted. The patient primarily was found to have hypokalemia and continue to monitor electrolytes. 2.Anion gap metabolic acidosis, on p.o. bicarbonate. Acidosis is secondary to chronic kidney diseas e and acute kidney injury. 3.Hypocalcemia, status post IV calcium. Pending workup for hypocalcemia. Continue to monitor. 4.Anemia, status post PHUONG. EB/MODL Voice ID: [id number] Report ID: [id number]
[2023-08-23 01:18] VITALS: BMI 30.2
[2023-08-23] MEDS: LABETALOL 20 MG/4ML SYRINGE IV PRN (01:30)
[2023-08-23] MEDS ORDERED: LABETALOL 20 MG/4ML SYRINGE IV SCH (02:00)
[2023-08-23 06:48] LABS: Anion Gap 11.7 mEq/L (5.0-15.0); Phosphorus 5.6 mg/dL (2.5-4.9); Potassium 3.7 mEq/L (3.5-5.1)
[2023-08-23] MEDS: POTASSIUM CL SA 10 MEQ TAB PO ONE (09:25)
--- NOTE | 2023-08-23 16:13 | P.PN ---
Date of Service: 08/23/23 Subjective: Pt states he feels weak but otherwise is without complaint Review of Systems General: Weakness, Malaise Eyes: Unremarkable ENT: Unremarkable Respiratory: Unremarkable Cardiovascular: Unremarkable Gastrointestinal: As per HPI Genitourinary: Unremarkable Musculoskeletal: Unremarkable Integumentary: Unremarkable Neurological: Unremarkable Lymphatics: Unremarkable Vital Signs: reviewed Physical Examination - Physical Exam General: Alert, Oriented x3 HEENT: Atraumatic Neck: Supple Respiratory: Normal air movement Cardiovascular: Regular rate/rhythm, Normal S1 S2 Gastrointestinal: Soft and benign Musculoskeletal: No swelling Neurological: Normal speech, Normal strength at 5/5 x4 extr Acute on Chronic Renal Failure Impression And Plan: per Nephrology 1. Acute on chronic kidney injury versus end-stage renal disease, status post kidney biopsy on Wednesday. Results are still pending. Continue to evaluate renal function. BUN is slightly improving, although the patient may need hemodialysis. Continue to monitor electrolytes. 2. Anion gap metabolic acidosis, on p.o. bicarbonate. Acidosis is secondary to chronic kidney disease and acute kidney injury. 3. Hypocalcemia, status post IV calcium. Pending workup for hypocalcemia. Continue to monitor. 4. Anemia, status post PHUONG. <Lubna Holguin - Last Filed: 08/23/23 16:21> Patient seen and examined. Agree with plan of care as mentioned above. Patient with kidney biopsy. Results are pending. Continue monitoring renal function closely. <Hamilton Zarco - Last Filed: 08/27/23 01:14>
[2023-08-23 22:25] LABS: Albumin, (SPE) 3.3 g/dL (3.8-4.8); Alpha-1-Globulins 0.3 g/dL (0.2-0.3); Alpha-2-Globulins 0.7 g/dL (0.5-0.9); Complement C3 95 mg/dL (82-185); Gamma Globulins 0.8 g/dL (0.8-1.7); INTERPRETATION REPORT
--- NOTE | 2023-08-23 23:49 | PN ---
Date of Progress Note: 08/23/2023 Chief Complaint: Renal failure, hypocalcemia, metabolic acidosis. Review of Systems: The patient denies complaints. Physical Examination: Lungs: Clear to auscultation bilaterally. Heart: S1, S2. Abdomen: Soft. Extremities: Slight edema. Impression And Plan: 1.Acute on chronic kidney injury versus end-stage renal disease, status post kidney biopsy on Wednesday . Results are pending. Continue to evaluate renal function. BUN is slightly improving, although th e patient may need hemodialysis to be started. Electrolytes are stable. Potassium is repleted. The patient primarily was found to have hypokalemia and plan is to continue to monitor electrolytes. 2.Anion gap sodium bicarbonate tablet. Acidosis is secondary to chronic kidney disease a nd acute kidney injury. 3.Hypocalcemia, status post IV calcium. Pending workup for hypocalcemia. Continue to monitor. EB/MODL Voice ID: [id number] Report ID: [id number]
[2023-08-24 00:26] LABS: Vitamin D 1,25-Dihydroxy Total 17 pg/mL (18-72); Vitamin D,1,25-OH2, D2 <8 pg/mL
[2023-08-24 08:07] LABS: Albumin 2.8 g/dL (3.4-5.0); Anion Gap 11.2 mEq/L (5.0-15.0); Phosphorus 5.7 mg/dL (2.5-4.9); Potassium 4.2 mEq/L (3.5-5.1)
[2023-08-24] MEDS ORDERED: CALCITROL 0.25 MCG CAP PO SCH (11:00)
[2023-08-24 11:04] LABS: C-ANCA Anti-Proteinase 3 <1.0 AI (<1.0); P-ANCA Anti-Myeloperoxidase Ab <1.0 AI (<1.0)
--- NOTE | 2023-08-24 11:18 | PN ---
Date of Progress Note: 08/24/2023 Subjective: The patient was admitted with acute kidney injury. 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 The patient's kidney function gradually improved, but still lowe r side. The patient does not have any uremic symptoms. No hyperkalemia. Physical Examination: Vital Signs: When I saw the patient, blood pressure 177/100, pulse of 74, afebrile. Chest: Clear to auscultation. Heart: S1, S2 regular. Abdomen: Soft, nontender. Extremities: No edema. Neurologic: Alert. No focality. Laboratory Data: Hemoglobin 9.1. Sodium 138, potassium 4.2, bicarb 22, BUN 78, creatinine 9.9, calc ium 8.1, phos 5.7, albumin 2.8, vitamin D 7.7. PTH 688. Urinalysis, nephrotic range of proteinuria, serology still pending. Complement within normal limit. Hep C negative. Renal ultrasound, increas ed echogenicity on both kidneys. No hydronephrosis. Right renal cyst. Current Medications: The patient on include diphenhydramine, calcium carbonate, amlodipine, carvedil ol 6.25 b.i.d., Tylenol, calcium acetate, sodium bicarb, normal saline. 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 Serology still pending. Biopsy show as I mentioned, possible FSGS, ge netic testing pending. Serum protein electrophoresis was negative. The patient does not have any ur emic symptoms. No hyperkalemia. No significant acidosis, respond to sodium bicarb. I do not see th e need for emergent dialysis. The patient mostly will need renal replacement therapy in the next cou ple of months. I had long discussion with the patient with the help of the social media community manager and family. Need for close followup. The patient interested in transplant. As I mentioned, no need for renal re placement therapy. The patient needs close followup as outpatient. We will continue to monitor. Di scontinue IV fluid. The patient cleared from the renal standpoint for discharge planning. Follow up in 2 to 3 weeks. 2.Secondary hyperparathyroidism. I am going to start the patient on calcitriol. 3.Vitamin D deficiency. We will start the patient on ergocalciferol 50,000 weekly and we will follo w up. 4.Acidosis. Continue oral bicarb. 5.Hypertension, poorly controlled. I am going to discontinue IV fluid, increase carvedilol to 25 mg and increase amlodipine to 10 mg. Keep avoiding SALVADOR inhibitor or ARB for the time being. The patie nt cleared from the renal standpoint for discharge planning. MARINA Voice ID: [id number] Report ID: [id number]
[2023-08-24] MEDS: DRISDOL (VITAMIN D=ERGOCALCIFEROL) 50000 UNIT CAP PO SCH (11:56)
[2023-08-24] MEDS: AMLODIPINE 10 MG TAB PO SCH (11:57)
--- NOTE | 2023-08-24 13:53 | P.PN ---
Date of Service: 08/24/23 Subjective: Pt states he feels good and is without complaint Review of Systems General: Unremarkable Eyes: Unremarkable ENT: Unremarkable Respiratory: Unremarkable Cardiovascular: Unremarkable Gastrointestinal: As per HPI Genitourinary: Unremarkable Musculoskeletal: Unremarkable Integumentary: Unremarkable Neurological: Unremarkable Lymphatics: Unremarkable Vital Signs: reviewed Physical Examination - Physical Exam General: Alert, Oriented x3 HEENT: Atraumatic Neck: Supple Respiratory: Normal air movement Cardiovascular: Regular rate/rhythm, Normal S1 S2 Gastrointestinal: Soft and benign Musculoskeletal: No swelling Neurological: Normal speech, Normal strength at 5/5 x4 extr Acute on Chronic Renal Failure Impression And Plan: per Nephrology 1. Acute on chronic kidney injury versus end-stage renal disease, status post kidney biopsy on Wednesday. Results are still pending. Continue to evaluate renal function. BUN is slightly improving, although the patient may need hemodialysis. Continue to monitor electrolytes. Creatinine trending down 9.9 today, GFR 7 2. Anion gap metabolic acidosis, on p.o. bicarbonate. Acidosis is secondary to chronic kidney disease and acute kidney injury. 3. Hypocalcemia, status post IV calcium. Pending workup for hypocalcemia. Continue to monitor. 4. Anemia, status post PHUONG. <Lubna Holguin - Last Filed: 08/25/23 14:41> Agree with plan of care as mentioned above. Patient seen and examined. Continue with monitoring renal function. Biopsy results are pending. Discussed the case with Nephrology. <Hamilton Zarco - Last Filed: 08/27/23 01:15>
[2023-08-24] MEDS: LABETALOL 20 MG/4ML SYRINGE IV ONE (17:51)
[2023-08-24] MEDS: carvediloL 25 MG TAB PO SCH (17:52)
[2023-08-24] MEDS: ALBUMIN HUMAN 25% 200 ML IV ONE (20:09)
[2023-08-24 21:17] LABS: Anti-Double Strand DNA Antibod <1 IU/mL (<=4)
[2023-08-25 03:44] LABS: Absolute Eosinophils 0.3 K/uL (0-0.5); Absolute Lymphocytes (CBC) 1.1 K/uL (0.7-4.9); Absolute Monocytes 0.4 K/uL (0.1-1.3); Basophils % 0.6 % (0-1.3); Eosinophils % 5.3 % (0-4.4); Hematocrit 22.8 % (39.6-49.0); MCH 29.6 pg (27.0-35.0); MCV 84.5 fL (80-100); Neutrophils % 69.1 % (41.7-73.7); Nucleated Red Blood Cells % 0.1 % (0-0); Platelets 153 thou/uL (152-406); RBC Red Blood Cell Count 2.69 M/uL (4.33-5.43); Red Cell Distribution Width 12.9 % (12.1-15.2)
[2023-08-25 04:00] LABS: Magnesium 2.2 mg/dL (1.6-2.4)
[2023-08-25 04:07] LABS: Albumin 3.1 g/dL (3.4-5.0); Albumin/Globulin Ratio 0.9 (1.1-1.8); Anion Gap 13.9 mEq/L (5.0-15.0); Bilirubin Total 0.4 mg/dL (0.2-1.0); Globulin 3.3 g/dL (2.3-3.5); Potassium 3.9 mEq/L (3.5-5.1); Protein, Total 6.4 g/dL (6.4-8.2)
[2023-08-25 04:55] VITALS: O2SAT 99
--- NOTE | 2023-08-25 11:46 | PN ---
Date of Progress Note: 08/25/2023 Subjective: The patient was admitted with acute kidney injury apparently on advanced chronic kidney disease with nephrotic range of proteinuria. The patient had biopsy done. The patient waking feelin g better. No nausea, no vomiting. Physical Examination: Vital Signs: Blood pressure 155/92, pulse of 67, afebrile. The patient had good urine output. Chest: Clear to auscultation. Heart: S1, S2 regular. Abdomen: Soft, nontender. Extremities: No edema. Neurological: Alert and oriented x3. No focality. No tremor. Laboratory Data: Hemoglobin of 8. Sodium 136, potassium 3.9, bicarb 22, BUN 73, creatinine 9.7, GFR of 7, calcium 8.4, phosphorus of 6, magnesium of 2.2. Serum protein electrophoresis is still pendin g. Vitamin D is low. PTH of 688. PC ratio 4. Current Medications: The patient on include: 1.Heparin. 2.Calcium carbonate. 3.Amlodipine. 4.Carvedilol 25 b.i.d. 5.Tylenol. 6.Calcium acetate 2 tablets with each meal. 7.Sodium bicarb 3 tablets 3 times a day. Assessment And Plan: 1.Acute kidney injury on advanced chronic kidney disease secondary to FSGS confirmed with biopsy wit h 80% of fibrosis. Possible nephropathy. We are going to consider genetic testing as out patient. We will follow up. We will obtain the consent from the patient. 2.I do not see the need to initiate any renal replacement therapy urgently currently as the patient has no uremia. No hyperkalemia or significant acidosis and the patient is nonoliguric, normal volume . I am going to continue current management. 3.Anemia of chronic kidney disease. We will follow up serum protein electrophoresis, was negative f or M spike and biopsy was negative. 4.Nephrotic range of proteinuria without diabetes. We will follow up genetic. I am going to be rel uctant to add any SALVADOR inhibitor or ARB with current kidney function. We will follow up. 5.Acidosis secondary to renal failure, recovered, resolved. 6.Secondary hyperparathyroid. Continue calcitriol. Continue vitamin D supplement. 7.Vitamin D deficiency. Continue supplement. The patient cleared from the renal standpoint for dis charge planning to follow up in the office in 2 to 3 weeks. PIETER/DIVYA Voice ID: [id number] Report ID: [id number]
[2023-08-25 12:51] VITALS: BP 141/71; TEMP 98.6
[2023-08-25] MEDS: SODIUM BICARB 325 MG TAB PO SCH (13:10)
--- NOTE | 2023-08-25 14:49 | P.DS ---
Admission Date: 08/18/23 Discharge Date: 08/25/23 Reason for Admission: Renal failure, hypocalcemia, metabolic acidemia Consultations: Dr. 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 He was found to have elevated creatinine of 12, potassium of 2.9, bicarb of 17, calcium of 5.9 and significant elevation of BUN. Overall he was deemed to have renal failure and was admitted for inpatient care. He had reported episode of lethargy, weakness, poor appetite. He denied overt episode of diarrhea. Initial his initial lab in the at patient setting was similar to labs done in the emergency room. He was asked to be evaluated by nephrology for management recommendation. Renal ultrasound done while admitted showed increased echogenicity of both kidneys with poor corticomedullary differentiation depicting chronic medical renal disease. Hospital Course: Mr. Wooten admitted with acute kidney injury on advanced chronic kidney disease was admitted for further investigation and management. He did well over the course of the hospitalization. He has had good urine output. He underwent a kidney biopsy on Wednesday, the results reveal focal segmental glomerulosclerosis. Management has been primarily reliant upon Dr. Adams. The patient gave consent for genetic testing of the biopsied specimen. He will be discharged to follow-up with Dr. Beverly in 2 to 3 weeks. He will be discharged on Calcitrol, vitamin D, and carvedilol 25 mg p.o. twice daily. <Lubna Holguin - Last Filed: 08/25/23 15:01> Admission Date: 08/18/23 Discharge Date: 08/25/23 Hospital Course: Patient was a 28-year-old gentleman who came to the hospital with advanced kidney failure. Patient was given IV fluids and patient renal function improved. Patient had a kidney biopsy with results showing FSGS and genetic testing is pending. We sent genetic test consent to pathology. We will also arrange for outpatient follow-up with Dr. hansen who scheduled an appointment in 2 weeks. Patient will discharge home on vitamin-D, calcitriol, and carvedilol. At this time, patient is stable for discharge home. <Hamilton Zarcol - Last Filed: 08/27/23 01:16> Disposition: ROUTINE DISCHARGE Discharge Condition: GOOD Vital Signs/Physical Exam: Temp Pulse Resp BP Pulse Ox 98.6 F 71 16 141/71 H 99 08/25/23 12:00 08/25/23 12:00 08/25/23 12:00 08/25/23 12:00 08/25/23 12:00 General: Alert, In no apparent distress, Oriented x3 HEENT: Atraumatic, Normocephalic, PERRLA Neck: 2+ carotid pulse no bruit Respiratory: Normal air movement Cardiovascular: Normal pulses, Regular rate/rhythm Capillary refill: <2 Seconds Gastrointestinal: Soft and benign Musculoskeletal: No clubbing, No swelling Integumentary: No breakdown Neurological: Normal speech, Normal tone Lymphatics: No axilla or inguinal lymphadenopathy External genitalia: Deferred Rectal: Deferred Laboratory Data at Discharge: WBC 5.80 thou/uL (4.3-10.9) 08/25/23 03:30 Hgb 8.0 g/dL (13.6-17.9) L 08/25/23 03:30 Hct 22.8 % (39.6-49.0) L 08/25/23 03:30 Plt Count 153 thou/uL (152-406) 08/25/23 03:30 PT 11.8 SECONDS (9.5-12.5) 08/19/23 19:17 INR 1.07 08/19/23 19:17 APTT 41.8 SECONDS (24.3-36.9) H 08/19/23 19:17 Sodium 136 mEq/L (136-145) 08/25/23 03:30 Potassium 3.9 mEq/L (3.5-5.1) 08/25/23 03:30 BUN 73 mg/dL (7-18) H 08/25/23 03:30 Creatinine 9.74 mg/dL (0.70-1.30) H 08/25/23 03:30 Glucose 94 mg/dL (74-106) 08/25/23 03:30 Uric Acid 12.3 mg/dL (3.5-7.2) H 08/20/23 04:07 Phosphorus 6.0 mg/dL (2.5-4.9) H 08/25/23 03:30 Magnesium 2.2 mg/dL (1.6-2.4) 08/25/23 03:30 Total Bilirubin 0.4 mg/dL (0.2-1.0) 08/25/23 03:30 AST 11 U/L (15-37) L 08/25/23 03:30 ALT 19 U/L (16-61) 08/25/23 03:30 Alkaline Phosphatase 99 U/L (45-117) 08/25/23 03:30 <Holguin,Lubna Jairo - Last Filed: 08/25/23 15:01> Vital Signs/Physical Exam: Temp Pulse Resp BP Pulse Ox 98.6 F 71 16 141/71 H 99 08/25/23 12:00 08/25/23 17:37 08/25/23 12:00 08/25/23 17:37 08/25/23 12:00 Laboratory Data at Discharge: WBC 5.80 thou/uL (4.3-10.9) 08/25/23 03:30 Hgb 8.0 g/dL (13.6-17.9) L 08/25/23 03:30 Hct 22.8 % (39.6-49.0) L 08/25/23 03:30 Plt Count 153 thou/uL (152-406) 08/25/23 03:30 PT 11.8 SECONDS (9.5-12.5) 08/19/23 19:17 INR 1.07 08/19/23 19:17 APTT 41.8 SECONDS (24.3-36.9) H 08/19/23 19:17 Sodium 136 mEq/L (136-145) 08/25/23 03:30 Potassium 3.9 mEq/L (3.5-5.1) 08/25/23 03:30 BUN 73 mg/dL (7-18) H 08/25/23 03:30 Creatinine 9.74 mg/dL (0.70-1.30) H 08/25/23 03:30 Glucose 94 mg/dL (74-106) 08/25/23 03:30 Uric Acid 12.3 mg/dL (3.5-7.2) H 08/20/23 04:07 Phosphorus 6.0 mg/dL (2.5-4.9) H 08/25/23 03:30 Magnesium 2.2 mg/dL (1.6-2.4) 08/25/23 03:30 Total Bilirubin 0.4 mg/dL (0.2-1.0) 08/25/23 03:30 AST 11 U/L (15-37) L 08/25/23 03:30 ALT 19 U/L (16-61) 08/25/23 03:30 Alkaline Phosphatase 99 U/L (45-117) 08/25/23 03:30 <Hamilton Zarco - Last Filed: 08/27/23 01:16> Diet: Renal Activity: Ad ernesto <Lubna Holguin - Last Filed: 08/25/23 15:01> <Hamilton Zarco - Last Filed: 08/27/23 01:16> Home Medications: Calcitrol [Rocaltrol*] 0.5 mcg PO DAILY #90 cap 08/25/23 Vitamin D [Drisdol*] 50,000 unit PO Q7D@0900 #12 cap 08/25/23 carvediloL [Coreg*] 25 mg PO BIDWM #180 tab 08/25/23 New Medications: carvediloL [Coreg*] 25 mg PO BIDWM #180 tab Vitamin D [Drisdol*] 50,000 unit PO Q7D@0900 #12 cap Calcitrol [Rocaltrol*] 0.5 mcg PO DAILY #90 cap Physician Discharge Instructions: Okay to DC IV and DC home Follow-up with primary care provider in 1 to 2 weeks Follow-up with in 2 to 3-week Return to the ER for worsening symptoms -Please contact Dr. Dr. Beverly office regarding follow-up. It is scheduled for 2 weeks. -Please call Dr. Zarco at [phone] if any questions regarding hospital stay -Please call nursing station at [phone] if any nursing or medication questions Followup: Piper Beverly MD [ACTIVE - CAN ADMIT] - (Follow up in 2-3 weeks) NONE,NONE [Primary Care Provider] -
[2023-08-26 11:39] LABS: Anti-Nuclear Antibody Screen Positive (Negative)
[2023-08-26 12:06] LABS: Anti-Nuclear Antibody Pattern REPORT; Anti-Nuclear Antibody Titer 1:40 (Negative)
== END 2023-08-25 19:15 | disposition home or self-care (01) | DRG 683 ==
LOC: ER 19:35 → ERHOLD 23:11 → 4TH 08-19 17:26
PROVIDERS: ADMIT Internal Medicine Nephrology; ATTEND Hospitalist
PROC: 0TB13ZX Excision of Left Kidney, Percutaneous Approach, Diagnostic (ICD-10-PCS; principal; 2023-08-20)
DX: N17.9 Acute kidney failure, unspecified (principal); E87.1 Hypo-osmolality and hyponatremia; E87.20 Acidosis, unspecified; I12.0 Hypertensive chronic kidney disease with stage 5 chronic kidney disease or end stage renal disease; E87.6 Hypokalemia; N18.5 Chronic kidney disease, stage 5; D63.1 Anemia in chronic kidney disease; E21.1 Secondary hyperparathyroidism, not elsewhere classified; E55.9 Vitamin D deficiency, unspecified; F17.210 Nicotine dependence, cigarettes, uncomplicated; R79.89 Other specified abnormal findings of blood chemistry; Z79.899 Other long term (current) drug therapy
CPT/HCPCS: 36415; 50200; 71045; 76770; 80048; 80053; 80069; 81001; 82306; 82550; 82570; 82607; 82652; 82728; 82805; 83520; 83540; 83735; 83880; 83970; 84100; 84132; 84156; 84165; 84443; 84466; 84484; 84550; 85025; 85044; 85610; 85730; 86021; 86038; 86160; 86225; 86430; 86803; 88300; 93005; 96374; 99285; J0360; J0612; J1644; J2250; J2310; J3010; J7030; P9047; Q5106